=== PATIENT | male | born 2000 | race Caucasian/White ===

== ENCOUNTER 2024-04-30 02:25 | Emergency (ER) | payer SELFPAY ==
[~2024-04-30] VITALS: Ht 175.3 cm; Wt 63.5 kg
[2024-04-30 02:41] VITALS: BP 129/85; TEMP 98.4; O2SAT 98
== END 2024-04-30 03:22 | disposition home or self-care (01) ==
LOC: ER 02:30
DX: F10.10 Alcohol abuse, uncomplicated (principal); Y90.9 Presence of alcohol in blood, level not specified